=== PATIENT | female | born 1965 | race Caucasian/White ===

== ENCOUNTER → 2020-08-01 | Outpatient (CLI) | payer OTHER ==
[~2020-08-01] MED LIST: AIMOVIG AU70 MG/1 ML SQ; ARMOUR THYROID30 MG PO; ASPIRIN EC81 MG PO; BACLOFEN20 MG PO; CALAN 80MG TABL80 MG PO; ISOSORBIDE DINI20 MG PO; METOPROLOL TART25 MG PO; MIRTAZAPINE15 MG PO; NITROGLYCERIN0.4 MG SL; PREDNISONE; RANEXA1000 MG PO; TOPIRAMATE100 MG PO
== END ==
LOC: KOH-I 13:34
DX: M50.30 Other cervical disc degeneration, unspecified cervical region (principal); J30.9 Allergic rhinitis, unspecified; E66.9 Obesity, unspecified; E03.9 Hypothyroidism, unspecified; R73.9 Hyperglycemia, unspecified
CPT/HCPCS: 73030

== ENCOUNTER → 2021-05-03 | Outpatient (CLI) | payer OTHER | LOC: HEART 5 10:25 | DX: R00.2 Palpitations (principal); I47.2 Ventricular tachycardia; R55 Syncope and collapse; I49.3 Ventricular premature depolarization ==

== ENCOUNTER → 2021-11-24 | Outpatient (CLI) | payer OTHER | LOC: US 07:51 | DX: M79.604 Pain in right leg (principal); S39.012A Strain of muscle, fascia and tendon of lower back, initial encounter | CPT/HCPCS: 93971 ==